=== PATIENT | male | born 1960 | race Caucasian/White ===

== ENCOUNTER 2020-01-07 21:32 | Emergency (ER) | payer MEDICAID ==
[~2020-01-07] VITALS: Ht 172.7 cm; Wt 63.5 kg
[2020-01-07 21:36] VITALS: Ht 172.7 cm; Wt 63.5 kg
[2020-01-07 21:52] VITALS: BP 115/92
== END 2020-01-07 21:53 | disposition other institution (70) ==
LOC: ED 21:32
DX: G89.29 Other chronic pain (principal); M54.5 Low back pain
CPT/HCPCS: J1885

== ENCOUNTER 2020-01-07 21:32 | Emergency (ER) | payer OTHER | END 2020-01-07 21:53 | disposition other institution (70) | LOC: ED 21:32 | DX: Z02.89 Encounter for other administrative examinations (principal) ==